=== PATIENT | female | born 1995 | race Caucasian/White ===

== ENCOUNTER 2023-05-18 05:25 | Inpatient (IN) | payer OTHER ==
[~2023-05-18] VITALS: Ht 157.5 cm; Wt 110.2 kg
--- OUTSIDE RECORDS SUMMARY | ~2023-05-18 | XMS | Continuity of Care Document ---
Demographics + + + | Address | [address] | | | [place] [address] | + + + | Preferred Language | Unknown | + + + | Marital Status | Never | + + + | Restorationist Affiliation | Unknown | + + + | Race | White | + + + | Ethnic Group | Unknown | + + + Author + + + | Author | [facility] | + + + | Organization | [facility] | + + + | Address | [address] | | | [place] [address] | + + + | Phone | | + + + Care Team Providers + + + + | Care Dining Room Host/Hostess Name | Role | Phone | + + + + Unavailable | Unavailable | + + + + Allergies No information. Encounters No information. Functional Status No information. Immunizations No information. Medications No information. Problems + + + + | date | description | facility | + + + + | 2023-05-05 19:30 | [facility]ES[facility] COMPLICATING | [facility] | | | , THIRD TR | | + + + + | 2023-05-05 19:30 | ENCOUNTER FOR [facility] OF | [facility] | | | NORMAL PREGNANC | | + + + + Procedures No information. Results/Labs No information. Social History No information. Vital Signs No information."
[2023-05-18 06:53] VITALS: BP 135/81
--- NOTE | 2023-05-18 12:08 | PR ---
[facility] [address], [place] [address] Signed Progress Notes IP Datetime Report Generated by CPN: 05/18/2023 12:08 PROGRESS NOTES: [id number] Impression: Reassuring Heart Rate Procedures: Artificial ROM Plan: Continue Present Management VITAL SIGNS: [id number] Vital Signs: Reviewed; Within Normal Limits EXAM: [id number] Dilatation: 3.5 Effacement: 90 Station: -2 MEMBRANES: [id number] Comments: Pt seen and examined. Doing well. Discussed AROM and pt desires. AROM easily performed for moderate amount of clear fluid. Discussed anticipated course of labor / delivery. Epidural on demand. All questions answered. FETUS A: [id number] FHR Baseline: 120 Variability: Moderate 6-25bpm Accelerations: 15X15 Decelerations: None FHR Category: Category I Comments on Fetus A: No evidence of metabolic acidosis FETUS B: [id number] Signing Physician: Jerome Ordonez DO Copies: ~ *Electronically Signed* 05/18/23 6713 JEROME ORDONEZ (RYAN) DO PATIENT NAME: RICH SAGE PROGRESS NOTE DATE OF : [birth year] PHYSICIAN: JEROME ORDONEZ (RYAN) DO RPT #: [id number] REPORT IS CONFIDENTIAL AND NOT TO BE RELEASED WITHOUT AUTHORIZATION
--- NOTE | 2023-05-18 14:32 | PR ---
[facility] [address] [place] [facility] [place] [address] Signed Progress Notes IP Datetime Report Generated by CPN: 05/18/2023 14:32 PROGRESS NOTES: [id number] Impression: Normal Progression of Labor; Reassuring Heart Rate Procedures: Epidural Placement Plan: Continue Present Management VITAL SIGNS: [id number] Vital Signs: Reviewed; Within Normal Limits EXAM: [id number] Dilatation: 4.0 Effacement: 95 Station: -2 MEMBRANES: [id number] Comments: Pt seen and evaluated. Sitting up for epidural. Will continue to monitor. No questions. Cx exam per RN FETUS A: [id number] FHR Baseline: 120 Variability: Moderate 6-25bpm Accelerations: 15X15 Decelerations: None FHR Category: Category I Comments on Fetus A: No evidence of metabolic acidosis FETUS B: [id number] Signing Physician: Jerome Ordonez DO Copies: ~ *Electronically Signed* 05/18/23 1432 JEROME ORDONEZ (RYAN) DO PATIENT NAME: RICH SAGE PROGRESS NOTE DATE OF : 94 PHYSICIAN: JEROME ORDONEZ (RYAN) DO RPT #: [id number] REPORT IS CONFIDENTIAL AND NOT TO BE RELEASED WITHOUT AUTHORIZATION
--- NOTE | 2023-05-18 17:24 | PR ---
[facility] [address] [place], [place] [address] Signed Progress Notes IP Datetime Report Generated by CPN: 05/18/2023 17:24 PROGRESS NOTES: [id number] Impression: Normal Progression of Labor; Reassuring Heart Rate Procedures: Sterile Vag Exam Plan: Continue Present Management; Anticipate Vaginal Delivery Informed Consent Obtain: Vaginal Delivery; Risks, Benefits and Alternatives Discussed Other Informed Consents: See notes VITAL SIGNS: [id number] Vital Signs: Reviewed; Within Normal Limits EXAM: Q5661009 Dilatation: 10.0 Effacement: 100 Station: -2 MEMBRANES: [id number] Comments: Pt seen and examined. Doing well. Comfortable w/ epidural. Discussed complete cervical dilation and labor pattern. Reviewed prior discussion regarding suspected macrosomia and risk of dystocia. Reviewed adequate pelvis on exam. After careful discussion of risks/benefits, pt desires to proceed w/ trial of . All questions answered. FETUS A: [id number] FHR Baseline: 120 Variability: Moderate 6-25bpm Accelerations: 15X15 Decelerations: None FHR Category: Category I Comments on Fetus A: No evidence of metabolic acidosis FETUS B: [id number] Signing Physician: Jerome Ordonez DO Copies: ~ *Electronically Signed* 05/18/23 1727 JEROME ORDONEZ (RYAN) DO PATIENT NAME: RICH SAGE PROGRESS NOTE DATE OF : 94 PHYSICIAN: JEROME ORDONEZ) DO RPT #: [id number] REPORT IS CONFIDENTIAL AND NOT TO BE RELEASED WITHOUT AUTHORIZATION
--- NOTE | 2023-05-18 21:52 | PR ---
[facility] [address] [place], [place] [address] Signed PP Progress Notes Datetime Report Generated by BETO: 05/18/2023 21:52 SUBJECTIVE: [id number] Pain: Within Normal Limits Nausea/Vomiting: Denies Vital Signs: [id number] Vital Signs: Reviewed; Within Normal Limits IMPRESSION/PLAN/PROCEDURES: Q5180300 Plan: Continue Present Management Progress Notes: Called to assess patient bleeding s/p delivery at 1810 hrs. EBL at time of delivery noted to be 300 cc. At change of shift, patient was noted to have passed a large blood clot and was noted to have a significant amount of bleeding. EBL at that time was around an additional 650 cc. Anesthesia was called to rebolus epidural which had not yet been removed. After sufficient comfort from epidural, exploration of the lower uterine segment was done manauallly. The lower uterine segment was noted to be filled with clot. Ringed forceps were used to remove a large quantity of the clots present. A small curette was used to probe the remainder of the lower usterine segment to remove the clot. Although curette was used, D_C was not performed. After removal of the clots, bleeding appeared to slow. Uterus was noted to be firm. Patient was given a dose of 0.2 mg IM methergine and 2 mg ancef IV x 1. Discussed with patient and nursing if bleeding begins to picker / packer again, the next step in management would be to proceed to the OR for D_C. Will continue to monitor bleeding. Signing Physician: Contreras Cunningham MD Copies: ~ *Electronically Signed* 05/18/23 2152 CONTRERAS CUNNINGHAM MD PATIENT NAME: RICH SAGE PROGRESS NOTE DATE OF : 94 PHYSICIAN: CONTRERAS CUNNINGHAM MD RPT #: [id number] REPORT IS CONFIDENTIAL AND NOT TO BE RELEASED WITHOUT AUTHORIZATION
--- NOTE | 2023-05-19 09:23 | PR ---
[facility] [address] [place], [place] [address] Signed PP Progress Notes Datetime Report Generated by BETO: 05/19/2023 09:23 SUBJECTIVE: [id number] Pain: Within Normal Limits Nausea/Vomiting: Denies Flatus: Yes Vital Signs: [id number] Vital Signs: Reviewed; Within Normal Limits Abdomen/Uterus: Normal Extremities: Normal Progress: Normal IMPRESSION/PLAN/PROCEDURES: [id number] Impression: Normal Progression Other Impression: hemorrhage Plan: Continue Present Management Procedures: None Progress Notes: 27 yo s/p vaginal delivery and hemorrhage. PPD#1. Patient doing well this morning. Minimal bleeding following last night's interventions. Currently still receiving PO methergine Q6 hrs. Denies CHUN, CP, SOB, F/C, N/V, RUQ pain, changes in vision, vaginal discharge. Toleraging regular diet, ambulating, pain controlled, +flatus, voiding on her own. Abd: Soft, non tender. No distension. Fundus firm and below umbilicus. Musc: Moving all extremities. Moderate edema. No calf pain or tenderness. A/P: 27 yo s/p vaginal delivery with hemorrhage. Doing well. - hemorrhage: H/H stable. Only slight drop from admitting H/H. Suspect this will drop further due to approximate blood loss of 1500 cc. 1) Continue PO methergine 2) Hemogram in AM -Postpatum care 1) continue routine care Disposition: In house. Probably discharge home tomorrow AM. Signing Physician: Contreras Cunningham MD *Electronically Signed* 05/19/23922 CONTRERAS CUNNINGHAM MD PATIENT NAME: RICH SAGE PROGRESS NOTE DATE OF : 94 PHYSICIAN: CONTRERAS CUNNINGHAM MD RPT #: [id number] REPORT IS CONFIDENTIAL AND NOT TO BE RELEASED WITHOUT AUTHORIZATION
--- NOTE | 2023-05-19 13:01 | NUR ---
MOM IN BED. DAD ON COUCH NEXT TO BABY IN [place]. BABY RESTING QUIETLY. BOTH PARENTS ATTENTIVE TO BABY. PRAYED.
--- NOTE | 2023-05-20 09:28 | PR ---
[facility] [address] [place], [place] [address] Signed PP Progress Notes Datetime Report Generated by BETO: 05/20/2023 09:28 SUBJECTIVE: [id number] Pain: Within Normal Limits Nausea/Vomiting: Denies Flatus: Yes Bowel Movement: Yes Vital Signs: [id number] Vital Signs: Reviewed; Within Normal Limits EXAM: Ongoing Abdomen/Uterus: Normal Extremities: Normal Progress: Normal IMPRESSION/PLAN/PROCEDURES: [id number] Impression: Normal Progression Other Impression: hemorrhage Plan: Discharge Procedures: None Progress Notes: 27 yo s/p vaginal delivery via induction of labor. Doing well. Denies CHUN, CP, SOB, F/C, N/V, RUQ pain, changes in vision. Reports no further heavy vaginal bleeding. Tolerating regluar diet, ambulating, voiding on own, pain conroled. O: AFVSS Abdomen: Uterus firm, bel[place] umbilicus, non tender. No distension. Musc: Moving all extremeties. Moderate LE edema, improving. A/P: 27 yo s/p vaginal delivery via induction of labor, hemorrhage. Doing well. Discharge home. Signing Physician: Contreras Cunningham MD Copies: ~ *Electronically Signed* 05/20/23927 CONTRERAS CUNNINGHAM MD PATIENT NAME: RICH SAGE PROGRESS NOTE DATE OF : 94 PHYSICIAN: CONTRERAS CUNNINGHAM MD RPT #: [id number] REPORT IS CONFIDENTIAL AND NOT TO BE RELEASED WITHOUT AUTHORIZATION
== END 2023-05-20 12:00 | disposition home or self-care (01) | DRG 806 ==
LOC: FBC 05:25
PROVIDERS: ADMIT Obstetrics & Gynecology; ATTEND Obstetrics & Gynecology
PROC: 10E0XZZ Delivery of Products of Conception, External Approach (ICD-10-PCS; principal; 2023-05-18)
PROC: 10907ZC Drainage of Amniotic Fluid, Therapeutic from Products of Conception, Via Natural or Artificial Opening (ICD-10-PCS; 2023-05-18)
PROC: 3E0R3BZ Introduction of Anesthetic Agent into Spinal Canal, Percutaneous Approach (ICD-10-PCS; 2023-05-18)
PROC: 00HU33Z Insertion of Infusion Device into Spinal Canal, Percutaneous Approach (ICD-10-PCS; 2023-05-18)
PROC: 10D17Z9 Manual Extraction of Products of Conception, Retained, Via Natural or Artificial Opening (ICD-10-PCS; 2023-05-18)
DX: O76 Abnormality in fetal heart rate and rhythm complicating labor and delivery (principal); O72.1 Other immediate postpartum hemorrhage; Z37.0 Single live birth; O99.324 Drug use complicating childbirth; O69.1XX0 Labor and delivery complicated by cord around neck, with compression, not applicable or unspecified; O99.214 Obesity complicating childbirth; O36.63X0 Maternal care for excessive fetal growth, third trimester, not applicable or unspecified; O99.824 Streptococcus B carrier state complicating childbirth; F12.90 Cannabis use, unspecified, uncomplicated; Z3A.39 39 weeks gestation of pregnancy; Z87.891 Personal history of nicotine dependence
CPT/HCPCS: 01960; 36415; 85027; 85384; 85610; 85730; 86850; 86900; 86901; A9270; J0690; J2210; J2405; J2540; J2590; J2795; J3010; J7121